=== PATIENT | male | born 1955 | race Caucasian/White ===

== ENCOUNTER 2020-12-08 14:51 | Inpatient (IN) | payer MEDICARE ==
[2020-12-08] MEDS ORDERED: NITROGLYCERIN SL TABS 0.4 MG TAB SUBLINGUAL STA (15:03)
[2020-12-08] MEDS ORDERED: NITROGLYCERIN OINT 1 INCH/GM PACKET TOPICAL STA (15:03)
[2020-12-08] MEDS ORDERED: ASPIRIN 81 MG PO STA (15:03)
[2020-12-08] MEDS ORDERED: ATORVASTATIN 80 MG TAB PO STA (15:09)
[2020-12-08] MEDS ORDERED: HEPARIN SODIUM,PORCINE 5,000 UNIT/ML 1 ML VIAL IV STA (15:14)
[2020-12-08] MEDS ORDERED: HEPARIN SODIUM 1,000 UN/ML (10ML VL) IV STA (15:14)
[2020-12-08] MEDS ORDERED: NALOXONE 0.4 MG/ML 1 ML VIAL IV PRN (15:16)
[2020-12-08 15:19] LABS: Basophils # (A) 0.1 k/uL (0-0.2); Basophils % (A) 1 %; Eosinophils # (A) 0.3 k/uL (0-0.7); Eosinophils % (A) 2 %; HCT 46.6 % (39.0-53.0); HGB 15.5 gm/dL (13.0-17.5); Lymphocytes # (A) 2.5 k/uL (1.0-4.8); Lymphocytes % (A) 22 %; MCH 31.8 pg (25.0-35.0); MCHC 33.3 g/dL (31.0-37.0); MCV 95.5 fL (80.0-100.0); Mean Platelet Volume 9.3; Monocytes # (A) 0.8 k/uL (0-1.0); Monocytes % (A) 7 %; Neutrophils # (A) 7.3 k/uL (1.3-7.7); Neutrophils % (A) 65 %; Platelet Count 195 k/uL (150-450); RBC 4.88 m/uL (4.30-5.90); RDW 13.2 % (11.5-15.5); WBC 11.1 k/uL (3.8-10.6)
[2020-12-08 15:29] LABS: Partial Thromboplastin Time 27.1 sec (22.0-30.0); Prothrombin Time 10.6 sec (9.0-12.0)
[2020-12-08] MEDS ORDERED: LIDOCAINE 1% INJ 10MG/ML (20 ML MDV) SQ ONE (15:30)
[2020-12-08] MEDS ORDERED: fentaNYL (PF) 50 MCG/ML 2 ML AMP ONE (15:31)
[2020-12-08] MEDS ORDERED: IV FLUID CONTINUATION 900 ML IV ONE (15:33)
[2020-12-08] MEDS ORDERED: fentaNYL (PF) 50 MCG/ML 2 ML AMP IV ONE ×2 (15:33→15:56)
[2020-12-08] MEDS: MIDAZOLAM 2 MG/2 ML VIAL IV ONE ×2 (15:33→15:48)
--- NOTE | 2020-12-08 15:33 | XR ---
EXAMINATION TYPE: XR chest 1V DATE OF EXAM: 12/08/2020 COMPARISON: None INDICATION: Chest pain TECHNIQUE: Single frontal view of the chest is obtained. FINDINGS: The heart size is normal. The pulmonary vasculature is somewhat prominent. Mild increased lung markings may be at the lung bases. Correlate for subsegmental atelectasis. Early atypical pulmonary edema could be considered. Patchy subsegmental infiltrate such as from atypical pn eumonia is considered less likely basis of this examination. Clinical correlation would be recommende d. IMPRESSION: 1. Mild by basilar infiltrates. Atelectasis or atypical pulmonary edema are favored. Follow-up can be performed as clinically indicated.
--- NOTE | 2020-12-08 15:35 | ED ---
General Adult HPI - General Chief complaint: Chest Pain Stated complaint: Chest pain Source: patient, EMS, RN notes reviewed, old records reviewed Limitations: no limitations - History of Present Illness Initial comments: 65-year-old male presenting with sudden onset chest pain radiating to the arm and her neck. This is a pressure heavy sensation. History of coronary artery bypass graft in the remote past. Patient follows with cardiology out of [facility]. He reports associated nausea and diaphoresis. Patient had been given nitroglycerin and aspirin by EMS. - Related Data Allergies Allergy/AdvReac Type Severity Reaction Status Date / Time No Known Allergies Allergy Verified 12/08/20 15:07 Review of Systems ROS Statement: Those systems with pertinent positive or pertinent negative responses have been documented in the HPI. ROS Other: All systems not noted in ROS Statement are negative. Past Medical History Past Medical History: Hypertension, Renal Disease History of Any Multi-Drug Resistant Organisms: None Reported Additional Past Surgical History / Comment(s): Right kideny removal Past Psychological History: No Psychological Hx Reported Smoking Status: Current every day smoker Past Alcohol Use History: None Reported Past Drug Use History: None Reported General Exam Limitations: no limitations General appearance: alert, in distress Head exam: Present: atraumatic, normocephalic Eye exam: Present: normal appearance, PERRL ENT exam: Present: normal exam Neck exam: Present: normal inspection. Absent: tenderness, meningismus Respiratory exam: Present: normal lung sounds bilaterally. Absent: respiratory distress, wheezes, rales Cardiovascular Exam: Present: normal rhythm, tachycardia GI/Abdominal exam: Present: soft. Absent: distended, tenderness, guarding Extremities exam: Present: normal inspection, normal capillary refill. Absent: pedal edema Neurological exam: Present: alert, oriented X3, CN II-XII intact Psychiatric exam: Present: anxious Skin exam: Present: warm, diaphoretic. Absent: cyanosis Course Vital Signs 12/08/20 14:53 Temperature 98.7 F Pulse Rate 113 H Respiratory 18 Rate Blood Pressure 145/99 O2 Sat by Pulse 98 Oximetry EKG Findings - EKG Comments: EKG Findings:: EKG obtained at 1459, wide-complex regular tachycardia with diffuse ST segment depression and elevation in aVR. There is no clear atrial activity, this may be an accelerated junctional rhythm. Rate of 112. QRS duration 136, QTC 491. EKG obtained at 1507, accelerated junctional rhythm this is a posterior with ST segment elevation in aVR, rate of 109, QRS duration 104, QTC 436 Medical Decision Making - Medical Decision Making 65-year-old male presenting for evaluation of chest pain. Patient is in extremis, EKG is ischemic. Workup initiated, patient given heparin, Lipitor, aspirin and nitroglycerin. He's taken immediately to the [facility] as a STEMI activation. Cardiology has been contacted, the admitting physician Dr. Christina has been contacted. - Lab Data Result diagrams: 12/08/20 15:15 Lab Results 12/08/20 Range/Units 15:15 WBC 11.1 H (3.8-10.6) k/uL RBC 4.88 (4.30-5.90) m/uL Hgb 15.5 (13.0-17.5) gm/dL Hct 46.6 (39.0-53.0) % MCV 95.5 (80.0-100.0) fL MCH 31.8 (25.0-35.0) pg MCHC 33.3 (31.0-37.0) g/dL RDW 13.2 (11.5-15.5) % Plt Count 195 (150-450) k/uL MPV 9.3 Neutrophils % 65 % Lymphocytes % 22 % Monocytes % 7 % Eosinophils % 2 % Basophils % 1 % Neutrophils # 7.3 (1.3-7.7) k/uL Lymphocytes # 2.5 (1.0-4.8) k/uL Monocytes # 0.8 (0-1.0) k/uL Eosinophils # 0.3 (0-0.7) k/uL Basophils # 0.1 (0-0.2) k/uL Disposition Clinical Impression: ST elevation myocardial infarction (STEMI) Disposition: ADMITTED IP TO THIS HOSP Condition: Serious Is patient prescribed a controlled substance at d/c from ED?: No Referrals: Gemini Hernandez MD [Primary Care Provider] - 1-2 days Time of Disposition: 15:15
[2020-12-08] MEDS ORDERED: BIVALIRUDIN BOLUS 250 MG/50 ML IV ONE (15:40)
[2020-12-08 15:41] LABS: Albumin 4.6 g/dL (3.5-5.0); Calcium 10.1 mg/dL (8.4-10.2); Magnesium 2.3 mg/dL (1.6-2.3); Potassium 4.5 mmol/L (3.5-5.1); Total Bilirubin 0.5 mg/dL (0.2-1.3); Total Protein 7.7 g/dL (6.3-8.2)
[2020-12-08] MEDS ORDERED: niCARdipine 25 MG/10 ML VIAL ONE (15:43)
[2020-12-08] MEDS ORDERED: BIVALIRUDIN 250 MG in SODIUM CHLORIDE 0.9% 36 ML IV ONE (15:47)
[2020-12-08] MEDS ORDERED: TICAGRELOR 90 MG TAB ONE (15:53)
[2020-12-08] MEDS ORDERED: TICAGRELOR 90 MG TAB PO ONE (15:55)
[2020-12-08] MEDS ORDERED: IOPAMIDOL-370 125ML BTL INJ ONE (15:57)
[2020-12-08] MEDS ORDERED: SODIUM CHLORIDE 0.9% 1,000 ML IV SCH (16:15)
--- NOTE | 2020-12-08 20:55 | CC ---
CARDIAC CATHETERIZATION REPORT DATE OF SERVICE: 12/08/2020 PERFORMING PHYSICIAN: Thai Ramirez M.D. PROCEDURES PERFORMED: 1. Selective left and right coronary angiogram. 2. GAMBLE to LAD angiogram. 3. SVG to first and second diagonal angiogram. 4. SVG to left circumflex angiogram. 5. Left heart catheterization. 6. Successful stenting of SVG to first and second diagonals using a 3.0 x 18 mm Xience drug-eluting stent with an excellent angiographic result and reduction of stenosis from 100% to 0%. INDICATION: This is a 65-year-old gentleman with coronary artery disease and prior coronary artery bypass grafting in 2007, where he received GAMBLE to LAD and SVG to first and second diagonal branches as well as SVG to left circumflex. He presented to the hospital here at [facility] Emergency Department with chest discomfort. His EKG was concerning for diffuse ischemia, and because of the ongoing chest discomfort a heart catheterization was advised. Please note that the patient also does have hypertension and dyslipidemia and also he does have history of right nephrectomy and chronic kidney disease, stage 3. APPROACH: Right common femoral artery. COMPLICATIONS: None. LEVEL OF SEDATION: Moderate, with sedation length of 28 minutes. PROCEDURE DESCRIPTION: After obtaining informed consent, the patient was brought to the cardiac laboratory geneticist. The right common femoral artery was cannulated using micropuncture technique. The micropuncture wire passed easily. Then I placed a 6-Sinhala sheath at the right common femoral artery. Selective left and right coronary angiogram was performed with JL4 and JR4 catheters. GAMBLE to LAD angiogram and SVG to first and second diagonals as well as SVG to left circumflex angiogram were performed using the JR4 catheter. Left heart catheterization was performed using a 6-Sinhala pigtail catheter. After that I did intervene on the SVG to first and second diagonals. Please see separate report for that. SELECTIVE CORONARY ANGIOGRAM: 1. Left main appeared to have mild disease only and bifurcates into left circumflex and left anterior descending artery. 2. The left circumflex is a large-caliber vessel. The proximal circumflex appeared to have mild disease only. The mid circumflex appeared to have a lesion in the range of 60% to 70%. The left circumflex distally becomes a small-caliber vessel. 3. The LAD is 100% occluded by the proximal portion. 4. The RCA appeared to be a small- to medium-caliber vessel and nondominant vessel. PERCUTANEOUS CORONARY INTERVENTION OF THE SAPHENOUS VEIN GRAFT TO FIRST AND SECOND DIAGONALS: Anticoagulation was achieved using Angiomax. I did engage the SVG to first and second diagonals using a JR4 guide. I did wire it using a run-through wire. After that I did balloon angioplasty using a 2.5 x 12 mm balloon before I deployed a 3.0 x 18 mm Xience drug-eluting stent where the stent was positioned under fluoroscopic guidance and deployed under about 16 atmospheres for 20 seconds. The following angiogram showed good angiographic results and the procedure was completed without any complication. HEMODYNAMICS: The LVEDP was about 12 mmHg without significant gradient across the aortic valve. CONCLUSION: 1. Occluded left anterior descending artery. The GAMBLE to LAD is patent and the LAD distal to the anastomosis has a lesion that appeared to be in the range of 50% to 60%. 2. Acutely occluded SVG to first and second diagonals. I performed successful stenting of that SVG. 3. Chronically occluded SVG to left circumflex. The left circumflex in the mid to distal portion has a lesion that appeared to be in the range of 60% to 70%. 4. Normal LVEDP. POST-PROCEDURE MANAGEMENT: 1. Aggressive cholesterol control. 2. Risk factor modifications. 3. Follow up with the patient. MMODL / IJN: [id number] /
[2020-12-08] MEDS: FAMOTIDINE 20 MG TAB PO SCH (21:27)
[2020-12-08] MEDS: METOPROLOL TARTRATE 12.5 MG TAB PO SCH (21:27)
[2020-12-08] MEDS: ATORVASTATIN 40 MG TAB PO SCH (21:27)
--- NOTE | 2020-12-08 21:51 | US ---
EXAMINATION TYPE: US kidneys/renal and bladder DATE OF EXAM: 12/08/2020 COMPARISON: NONE CLINICAL HISTORY: renal failure. renal failure, pt states having rt kidney surgically removed due to renal CA EXAM MEASUREMENTS: Left Kidney: 12.2 x 7.2 x 5.1 cm Right Kidney: Surgically absent Left Kidney: Multicystic, largest cyst= 2.2 x 1.9 cm/ No evidence of hydro Bladder: WNL Bilateral Jets seen: No IMPRESSION: 1. Renal cysts.
[2020-12-09] MEDS: METOPROLOL TARTRATE 12.5 MG TAB PO SCH ×3 (01:01→19:41)
[2020-12-09] MEDS: FAMOTIDINE 20 MG TAB PO SCH ×2 (08:35→19:39)
[2020-12-09] MEDS: TICAGRELOR 90 MG TAB PO SCH ×2 (08:35→19:40)
[2020-12-09] MEDS: allopurinoL 100 MG TAB PO SCH (08:35)
[2020-12-09] MEDS: ASPIRIN 81 MG PO SCH (08:35)
[2020-12-09 10:16] LABS: Calcium 9.1 mg/dL (8.4-10.2); Potassium 4.2 mmol/L (3.5-5.1)
[2020-12-09 11:33] LABS: Basophils % (A) 0 %; Eosinophils # (A) 0.1 k/uL (0-0.7); Eosinophils % (A) 1 %; HCT 45.2 % (39.0-53.0); HGB 14.7 gm/dL (13.0-17.5); Lymphocytes # (A) 1.4 k/uL (1.0-4.8); Lymphocytes % (A) 14 %; MCH 31.5 pg (25.0-35.0); MCHC 32.6 g/dL (31.0-37.0); MCV 96.6 fL (80.0-100.0); Mean Platelet Volume 10.7; Monocytes # (A) 0.5 k/uL (0-1.0); Monocytes % (A) 5 %; Neutrophils # (A) 7.9 k/uL (1.3-7.7); Neutrophils % (A) 78 %; Platelet Count 172 k/uL (150-450); RBC 4.68 m/uL (4.30-5.90); RDW 13.9 % (11.5-15.5); WBC 10.1 k/uL (3.8-10.6)
--- NOTE | 2020-12-09 12:06 | P.HPIM ---
History of Present Illness H&P Date: 12/09/20 Chief Complaint: CP HISTORY OF PRESENT ILLNESS This is a 65-year-old male patient of Dr. Hernandez and block sorter Dr. Danielle with past medical history of coronary artery disease with previous CABG in 2007 with GAMBLE to LAD, SVG to first and second diagonal branches as well as SVG to the left circumflex, hypertension, hyperlipidemia, history of kidney cancer status post right nephrectomy, chronic kidney disease stage III, gastroesophageal reflux disease, chronic gout, active tobacco use. States he had chest pain for about one hour took an aspirin at home as well as one nitroglycerin and then contacted EMS. He states he was resting at the time of onset. He was given 2 nitro with EMS transport and he was still low better by the time he arrived to the hospital. EKG was concerning for diffuse ischemia and patient underwent an urgent heart catheterization at which time he was found to have left main with mild disease only and bifurcates into the left circumflex and left anterior descending artery. Left circumflex is a large caliber vessel. Proximal circumflex mild disease only. Mid circumflex appeared to have lesion in the range of 60-70%. Left circumflex distally be comes a small caliber vessel. LAD is out of percent occluded by the proximal portion. RCA appears to be small to medium caliber and nondominant. He underwent successful stenting of the SVG to the first and second diagonals. Patient has been started on Brilinta, Lipitor, aspirin and Lopressor. Patient at time of evaluation denies having any chest pain, shortness of breath, palpitations, lightheadedness or dizziness. A renal ultrasound revealed renal cysts. Echocardiogram has been obtained and report is pending. REVIEW OF SYSTEMS Constitutional: No fever, no chills, no night sweats. No weight change. No weakness, fatigue or lethargy. No daytime sleepiness. EENT: No headache. No blurred vision or double vision, no loss of vision. No loss of Hearing, no ringing in the ears, no dizziness. No nasal drainage or congestion. No epistaxis. No sore throat. Lungs: No shortness of breath, cough, no sputum production. No wheezing. Cardiovascular: No chest pain, no lower extremity edema. No palpitations. No paroxysmal nocturnal dyspnea. No orthopnea. No lightheadedness or dizziness. No syncopal episodes. Abdominal: No abdominal pain. No nausea, vomiting. No diarrhea. No constipation. No bloody or tarry stools.. No loss of appetite. Genitourinary: No dysuria, increased frequency, urgency. No urinary retention. Musculoskeletal: No myalgias. No muscle weakness, no gait dysfunction, no frequent falls. No back pain. No neck pain. Integumentary: No wounds, no lesions. No rash or pruritus. No unusual brui sing. No change in hair or nails. Neurologic: No aphasia. No facial droop. No change in mentation. No head injury. No headache. No paralysis. No paresthesia. Psychiatric: No depression. No anxiety. Endocrine: No abnormal blood sugars. No weight change. SOCIAL HISTORY Patient is a smoker of one pack per day for 49 years. He denies any alcohol use for 30 years. He retired last January. He denies having walker or cane. No CPAP oxygen or nebulizer at home. FAMILY HISTORY Mother at age 87 from cervical cancer. Father from electrical accident. Patient has a total of 5 brothers with history of prostate cancer diabetes and coronary artery disease. Patient has one sister alive with no major. Patient has one sister that passed from unknown cause. Patient is a total of 5 brothers with history of prostate cancer diabetes and coronary artery disease. Patient has 2 daughters and one has chronic neck problems. One son with no major medical problems.. PHYSICAL EXAMINATION Gen: This is a 65-year-old male. He is resting in bed appears to be comfortable and in no acute distress. HEENT: Head is atraumatic, normocephalic. Pupils equal, round. Sclerae is anicteric. NECK: Supple. No JVD. No lymphadenopathy. No thyromegaly. LUNGS: Clear to auscultation. No wheezes or rhonchi. No intercostal retractions. HEART: Regular rate and rhythm. No murmur. ABDOMEN: Soft. Bowel sounds are present. No masses. No tenderness. EXTREMITIES: No pedal edema. No calf tenderness. NEUROLOGICAL: Patient is awake, alert and oriented x3. Cranial nerves 2 through 12 are grossly intact. ASSESSMENT AND PLAN 1. Acute ST elevated myocardial infarction status post stenting of the SVG in the first and second diagonals. Patient has been started on Brilinta, Lipitor, aspirin, Lopressor. Echocardiogram report is pending. 2. History of coronary artery disease with previous CABG in 2007 with AGMBLE to LAD, SVG to first and second diagonal branches as well as SVG to the left cir cumflex. Continue as in #1. 3. Hypertension. Continue Lopressor 12.5 mg twice daily. 4. Hyperlipidemia. Continue Lipitor. 5. History of kidney cancer status post right nephrectomy, stable. 6. Chronic kidney disease stage III. 7. Tobacco use and dependence. Patient declined nicotine patch. 8. Chronic gout. Continue allopurinol 100 mg daily. 9. Gastroesophageal reflux disease. Continue Pepcid 20 mg twice daily. Patient will be admitted to the hospital for a minimum of 2 night stay. DISCHARGE PLAN Home. Impression and plan of care have been directed as dictated by the signing physician. Roro Heck nurse practitioner acting as scribe for signing physician. Past Medical History Past Medical History: Hypertension, Renal Disease History of Any Multi-Drug Resistant Organisms: None Reported Past Surgical History: Coronary Bypass/CABG, Heart Catheterization Additional Past Surgical History / Comment(s): Right kideny removal 2018. CAGB 2007 Past Anesthesia/Blood Transfusion Reactions: No Reported Reaction Past Psychological History: No Psychological Hx Reported Smoking Status: Current every day smoker Past Alcohol Use History: None Reported Past Drug Use History: None Reported Medications and Allergies Home Medications Medication Instructions Recorded Confirmed Type Aspirin EC [Ecotrin] 325 mg PO DAILY 12/08/20 12/08/20 History Atorvastatin Calcium [Lipitor] 20 mg PO DAILY 12/08/20 12/08/20 History Ergocalciferol (Vitamin D2) 1,250 mcg PO Q30D 12/08/20 12/08/20 History [Drisdol (50,000 Iu)] Famotidine [Pepcid] 20 mg PO BID 12/08/20 12/08/20 History Metoprolol Succinate [Toprol XL] 25 mg PO DAILY 12/08/20 12/08/20 History Nitroglycerin Sl Tabs [Nitrostat] 0.4 mg SUBLINGUAL Q5M PRN 12/08/20 12/08/20 History allopurinoL [Zyloprim] 100 mg PO DAILY 12/08/20 12/08/20 History Allergies Allergy/AdvReac Type Severity Reaction Status Date / Time No Known Allergies Allergy Verified 12/08/20 15:59 Physical Exam Vitals: Vital Signs Temp Pulse Pulse Resp BP BP Pulse Ox 12/09/20 08:00 97.6 F 60 18 115/75 97 12/09/20 03:04 64 17 118/73 99 12/09/20 01:57 56 L 17 12/09/20 00:00 98.2 F 56 L 17 114/73 99 12/08/20 21:45 62 18 117/74 97 12/08/20 21:21 61 17 119/66 98 12/08/20 20:38 67 17 128/72 97 12/08/20 20:23 17 137/85 97 12/08/20 20:08 62 19 127/79 98 12/08/20 20:00 98.2 F 62 18 131/74 98 12/08/20 18:31 61 18 144/84 99 12/08/20 17:57 58 L 18 142/86 99 12/08/20 17:27 58 L 18 131/81 99 12/08/20 17:12 60 18 125/79 99 12/08/20 16:57 60 18 125/73 99 12/08/20 16:42 62 18 124/69 98 12/08/20 16:27 63 18 134/71 98 12/08/20 16:01 98.2 F 60 16 131/74 98 12/08/20 14:53 98.7 F 113 H 18 145/99 98 Intake and Output 12/08/20 12/09/20 12/09/20 22:59 06:59 14:59 Intake Total 511 200 240 Output Total 500 1200 Balance 11 -1000 240 Intake: IV 511 Oral 200 240 Output: Urine 500 1200 Other: Voiding Method Urinal Urinal Urinal # Voids 1 1 Weight 95.254 kg 90 kg Results CBC & Chem 7: 12/09/20 08:56 12/09/20 08:56 Labs: Abnormal Lab Results - Last 24 Hours (Table) 12/08/20 12/08/20 12/08/20 Range/Units 15:15 15:15 15:15 WBC 11.1 H (3.8-10.6) k/uL BUN 29 H (9-20) mg/dL Creatinine 2.42 H (0.66-1.25) mg/dL Glucose 120 H (74-99) mg/dL Troponin I 0.079 H* (0.000-0.034) ng/mL Thrombosis Risk Factor Assmnt - Choose All That Apply Any of the Below Risk Factors Present?: Yes Each Factor Represents 1 point: Obesity (BMI >25) Each Risk Factor Represents 2 Points: Age 61-74 years Thrombosis Risk Factor Assessment Total Risk Factor Score: 3 Thrombosis Risk Factor Assessment Level: Moderate Risk
--- NOTE | 2020-12-09 12:22 | P.PN ---
Subjective Progress Note Date: 12/09/20 This is a 65-year-old gentleman past medical history consistent for CABG, hypertension, hyperlipidemia, kidney cancer status post right nephrectomy, chronic kidney disease, chronic gout, active nicotine dependence who presented to the hospital with a non-ST elevation myocardial infarction. He was taken to the cardiac catheterization lab where he underwent angioplasty and stenting of the first and second diagonal by Dr. Vee. The patient was seen and examined this morning denied any chest discomfort and is breathing overall has been stable. Patient also had some disease in the circumflex and will be treated medically. Blood pressure 115/70 with a heart rate in the 60s 97% on room air. White blood cell count 10.1, hemolytic 14.7, platelet count 172. Sodium 138, potassium 4.2, BUN 25, creatinine 2.1. Objective - Vital Signs Vital signs: Vital Signs Temp 97.6 F 12/09/20 08:00 Pulse 60 12/09/20 08:00 Resp 18 12/09/20 08:00 BP 115/75 12/09/20 08:00 Pulse Ox 97 12/09/20 08:00 Intake & Output 12/08/20 12/09/20 12/09/20 18:59 06:59 18:59 Intake Total 511 200 240 Output Total 1700 Balance 511 -1500 240 Weight 95.254 kg 90 kg Intake: IV 511 Oral 200 240 Output: Urine 1700 Other: Voiding Method Urinal Urinal # Voids 1 - Exam Gen: This is a 65-year-old male. He is resting in bed appears to be comfortable and in no acute distress. HEENT: Head is atraumatic, normocephalic. Pupils equal, round. Sclerae is anicteric. NECK: Supple. No JVD. No lymphadenopathy. No thyromegaly. LUNGS: Clear to auscultation. No wheezes or rhonchi. No intercostal retractions. HEART: Regular rate and rhythm. No murmur. ABDOMEN: Soft. Bowel sounds are present. No masses. No tenderness. EXTREMITIES: No pedal edema. No calf tenderness. Right groin soft, no evidence of any hematoma. NEUROLOGICAL: Patient is awake, alert and oriented x3. Cranial nerves 2 through 12 are grossly intact. - Labs CBC & Chem 7: 12/09/20 08:56 12/09/20 08:56 Labs: Abnormal Lab Results - Last 24 Hours (Table) 12/08/20 12/08/20 12/08/20 Range/Units 15:15 15:15 15:15 WBC 11.1 H (3.8-10.6) k/uL Neutrophils # (1.3-7.7) k/uL BUN 29 H (9-20) mg/dL Creatinine 2.42 H (0.66-1.25) mg/dL Glucose 120 H (74-99) mg/dL Troponin I 0.079 H* (0.000-0.034) ng/mL 12/09/20 12/09/20 Range/Units 08:56 08:56 WBC (3.8-10.6) k/uL Neutrophils # 7.9 H (1.3-7.7) k/uL BUN 25 H (9-20) mg/dL Creatinine 2.17 H (0.66-1.25) mg/dL Glucose 175 H (74-99) mg/dL Troponin I (0.000-0.034) ng/mL Assessment and Plan Plan: Assessment and plan #1 acute non-ST elevation myocardial infarction, status post angioplasty and stenting of the first and second diagonal branch #2 hypertension #3 known history of coronary artery disease with prior bypass surgery #4 hyperlipidemia #5 chronic kidney disease #6 nicotine dependence #7 GERD Plan We will continue dual antiplatelet therapy. Increase Lipitor to 80 mg daily. Need to observe the patient for 24 hours. Check lytes BUN and creatinine in the morning. DNP note has been reviewed, I agree with a documented findings and plan of care. Patient was seen and examined.
--- NOTE | 2020-12-09 12:40 | ECHOF ---
Referral Reason:ACS MEASUREMENTS -------- HEIGHT: 182.9 cm WEIGHT: 89.8 kg BP: 118/73 RVIDd: 3.5 cm (< 3.3) IVSd: 1.0 cm (0.6 - 1.1) LVIDd: 4.8 cm (3.9 - 5.3) LVPWd: 1.0 cm (0.6 - 1.1) IVSs: 1.5 cm LVIDs: 3.9 cm LVPWs: 1.4 cm LA Diam: 3.3 cm (2.7 - 3.8) LAESV Index (A-L): 25.89 ml/m Ao Diam: 3.5 cm (2.0 - 3.7) AV Cusp: 2.1 cm (1.5 - 2.6) MV EXCURSION: 10.933 mm (> 18.000) MV EF SLOPE: 31 mm/s (70 - 150) EPSS: 2.6 cm MV E Swapnil: 1.06 m/s MV DecT: 189 ms MV A Swapnil: 0.75 m/s MV E/A Ratio: 1.42 AR PHT: 559 ms FINDINGS -------- Sinus rhythm. This was a technically good study. The left ventricular size is normal. Left ventricular wall thickness is normal. Overall left vent ricular systolic function is mild-moderately impaired with, an EF between 40 - 45 %. The right ventricle is mildly enlarged. Normal LA size by volume 22+/-6 ml/m2. The right atrium is normal in size. Aortic valve is trileaflet and is mildly thickened. There is moderate aortic regurgitation. Mild mitral annular calcification present. The tricuspid valve appears structurally normal. Unable to estimate RVSP due to inadequate TR jet s pectral doppler profile. Trace/mild (physiologic) pulmonic regurgitation. The aortic root size is normal. IVC Not well visulized. There is no pericardial effusion. CONCLUSIONS -------- 1. The left ventricular size is normal. 2. Left ventricular wall thickness is normal. 3. Overall left ventricular systolic function is mild-moderately impaired with, an EF between 40 - 45 %. 4. The right ventricle is mildly enlarged. 5. Normal LA size by volume 22+/-6 ml/m2. 6. Aortic valve is trileaflet and is mildly thickened. 7. There is moderate aortic regurgitation. 8. Mild mitral annular calcification present. 9. Trace/mild (physiologic) pulmonic regurgitation. 10. There is no pericardial effusion. PENSION AGENT: Araseli Bridges RDCS
[2020-12-09] MEDS: ATORVASTATIN 40 MG TAB PO SCH (19:40)
[2020-12-10 03:01] LABS: Cholesterol 147 mg/dL (<200); HDL Cholesterol 33 mg/dL (40-60); LDL Cholesterol,Calculated 76 mg/dL (0-99); Triglycerides 192 mg/dL (<150)
[2020-12-10 07:58] VITALS: RESP 18
[2020-12-10] MEDS: allopurinoL 100 MG TAB PO SCH (08:01)
[2020-12-10] MEDS: ASPIRIN 81 MG PO SCH (08:01)
[2020-12-10] MEDS: FAMOTIDINE 20 MG TAB PO SCH (08:01)
[2020-12-10] MEDS: TICAGRELOR 90 MG TAB PO SCH (08:01)
[2020-12-10] MEDS: METOPROLOL TARTRATE 12.5 MG TAB PO SCH (08:01)
[2020-12-10 08:58] LABS: Basophils # (A) 0.1 k/uL (0-0.2); Basophils % (A) 1 %; Eosinophils # (A) 0.2 k/uL (0-0.7); Eosinophils % (A) 2 %; HCT 44.1 % (39.0-53.0); HGB 15.4 gm/dL (13.0-17.5); Lymphocytes # (A) 1.3 k/uL (1.0-4.8); Lymphocytes % (A) 14 %; MCH 33.1 pg (25.0-35.0); MCV 94.7 fL (80.0-100.0); Mean Platelet Volume 9.6; Monocytes # (A) 0.6 k/uL (0-1.0); Monocytes % (A) 6 %; Neutrophils # (A) 7.1 k/uL (1.3-7.7); Neutrophils % (A) 76 %; Platelet Count 162 k/uL (150-450); RBC 4.66 m/uL (4.30-5.90); RDW 13.1 % (11.5-15.5); WBC 9.3 k/uL (3.8-10.6)
[2020-12-10 09:06] LABS: Calcium 9.2 mg/dL (8.4-10.2); Potassium 4.3 mmol/L (3.5-5.1)
--- NOTE | 2020-12-10 10:05 | P.NPCON ---
History of Present Illness - Reason for Consult chronic renal failure - History of Present Illness Reason for consultation: Chronic kidney disease stage IIIB History of present illness: I sent patient is a 65-year-old male seen in renal consultation for chronic kidney disease. Patient has chronic kidney disease stage IIIB secondary to solitary left kidney and nephrosclerosis. Patient's creatinine in March 2020 was 2.2. Patient has history of right nephrectomy done in July 2018. Patient presented to the hospital with chest pain with radiation to his arm and neck. He does have history of CABG. Echocardiogram revealed ejection fraction of 40-45% with moderate aortic regurgitation. He underwent cardiac catheterization on December 08 with a stent placement of the SVG. Admits to good urine output. No hematuria. No active chest pain or shortness of breath. Blood pressure stable. No vomiting or diarrhea. Denies use of nonsteroidals. No edema. Vital signs are stable. General: The patient appeared well nourished and normally developed. HEENT: Head exam is unremarkable. Neck is without jugular venous distension. LUNGS: Breath sounds decreased. HEART: Rate and Rhythm are regular. ABDOMEN: Soft, nontender. EXTREMITITES: No edema. Past Medical History Past Medical History: Hypertension, Renal Disease History of Any Multi-Drug Resistant Organisms: None Reported Past Surgical History: Coronary Bypass/CABG, Heart Catheterization Additional Past Surgical History / Comment(s): Right kideny removal 2018. CAGB 2007 Past Anesthesia/Blood Transfusion Reactions: No Reported Reaction Past Psychological History: No Psychological Hx Reported Smoking Status: Current every day smoker Past Alcohol Use History: None Reported Past Drug Use History: None Reported Medications and Allergies Home Medications Medication Instructions Recorded Confirmed Type Ergocalciferol (Vitamin D2) 1,250 mcg PO Q30D 12/08/20 12/08/20 History [Drisdol (50,000 Iu)] Famotidine [Pepcid] 20 mg PO BID 12/08/20 12/08/20 History Metoprolol Succinate [Toprol XL] 25 mg PO DAILY 12/08/20 12/08/20 History Nitroglycerin Sl Tabs [Nitrostat] 0.4 mg SUBLINGUAL Q5M PRN 12/08/20 12/08/20 History allopurinoL [Zyloprim] 100 mg PO DAILY 12/08/20 12/08/20 History Aspirin 81 mg PO DAILY chew 12/09/20 Rx Atorvastatin [Lipitor] 40 mg PO HS #30 tab 12/09/20 Rx Ticagrelor [Brilinta] 90 mg PO BID #60 tab 12/09/20 Rx Allergies Allergy/AdvReac Type Severity Reaction Status Date / Time No Known Allergies Allergy Verified 12/08/20 15:59 Physical Exam Vitals: Vital Signs Temp Pulse Resp BP BP Pulse Ox 12/10/20 07:57 97.9 F 64 18 145/85 97 12/10/20 04:00 86 17 109/77 98 12/10/20 01:57 66 17 12/10/20 00:00 97.8 F 66 17 124/76 97 12/09/20 19:45 60 19 12/09/20 19:43 97.4 F L 60 19 119/69 96 12/09/20 16:00 74 18 124/77 96 12/09/20 12:00 97.4 F L 54 L 18 121/75 96 Intake and Output 12/09/20 12/10/20 12/10/20 22:59 06:59 14:59 Intake Total 125 100 Balance 125 100 Intake: Oral 125 100 Other: Voiding Method Toilet Toilet Urinal Urinal # Voids 2 Weight 89.5 kg Results - Lab Results Most recent lab results Calcium 9.2 mg/dL (8.4-10.2) 12/10/20 08:17 Magnesium 2.3 mg/dL (1.6-2.3) 12/08/20 15:15 12/10/20 08:17 12/10/20 08:17 Assessment and Plan Plan: Assessment: 1. Chronic kidney disease stage IIIB secondary to solitary left kidney and nephrosclerosis. Baseline creatinine 2-2.2. 2. Status post right nephrectomy in July 2018. 3. Coronary artery disease status post cardiac catheterization on December 08 with stent placed to the SVG. Plan: Anticipate discharge soon. Repeat BMP 2-3 days postdischarge as he received IV contrast on December 08. Follow-up outpatient in 1-2 weeks. Thank you for the consultation. I will continue to follow the patient with you during his hospital stay.
--- NOTE | 2020-12-10 11:01 | P.PN ---
Subjective Progress Note Date: 12/10/20 This is a 65-year-old gentleman past medical history consistent for CABG, hypertension, hyperlipidemia, kidney cancer status post right nephrectomy, chronic kidney disease, chronic gout, active nicotine dependence who presented to the hospital with a non-ST elevation myocardial infarction. He was taken to the cardiac catheterization lab where he underwent angioplasty and stenting of the first and second diagonal by Dr. Vee. The patient was seen and examined this morning denied any chest discomfort and is breathing overall has been stable. Patient also had some disease in the circumflex and will be treated medically. Blood pressure 115/70 with a heart rate in the 60s 97% on room air. White blood cell count 10.1, hemolytic 14.7, platelet count 172. Sodium 138, potassium 4.2, BUN 25, creatinine 2.1. 12/10/2020 Patient seen and examined this morning, denies any chest discomfort or difficulty in breathing. Blood pressure 144/80 with a heart rate in the 60s, 97% on room air. White blood cell count 9.3, hemoglobin 15.4, platelet count 162. Sodium 137, potassium 4.3, BUN 25, creatinine 2.1. Objective - Vital Signs Vital signs: Vital Signs Temp 97.9 F 12/10/20 07:57 Pulse 64 12/10/20 07:57 Resp 18 12/10/20 07:57 BP 145/85 12/10/20 07:57 Pulse Ox 97 12/10/20 07:57 Intake & Output 12/09/20 12/10/20 12/10/20 18:59 06:59 18:59 Intake Total 605 100 240 Balance 605 100 240 Weight 89.5 kg Intake: Oral 605 100 240 Other: Voiding Method Urinal Toilet Urinal # Voids 3 2 - Exam Gen: This is a 65-year-old male. He is resting in bed appears to be comfortable and in no acute distress. HEENT: Head is atraumatic, normocephalic. Pupils equal, round. Sclerae is anicteric. NECK: Supple. No JVD. No lymphadenopathy. No thyromegaly. LUNGS: Clear to auscultation. No wheezes or rhonchi. No intercostal retractions. HEART: Regular rate and rhythm. No murmur. ABDOMEN: Soft. Bowel sounds are present. No masses. No tenderness. EXTREMITIES: No pedal edema. No calf tenderness. Right groin soft, no evidence of any hematoma. NEUROLOGICAL: Patient is awake, alert and oriented x3. Cranial nerves 2 through 12 are grossly intact. - Labs CBC & Chem 7: 12/10/20 08:17 12/10/20 08:17 Labs: Abnormal Lab Results - Last 24 Hours (Table) 12/09/20 12/09/20 12/10/20 Range/Units 08:56 08:56 08:17 Neutrophils # 7.9 H (1.3-7.7) k/uL BUN 25 H (9-20) mg/dL Creatinine 2.18 H (0.66-1.25) mg/dL Glucose 152 H (74-99) mg/dL Triglycerides 192 H (<150) mg/dL HDL Cholesterol 33 L (40-60) mg/dL Assessment and Plan Plan: Assessment and plan #1 acute non-ST elevation myocardial infarction, status post angioplasty and stenting of the first and second diagonal branch #2 hypertension #3 known history of coronary artery disease with prior bypass surgery #4 hyperlipidemia #5 chronic kidney disease #6 nicotine dependence #7 GERD Plan From cardiology's perspective, patient may be able to be discharged home today. We will make him a follow-up appointment in the office one week post discharge. Patient will be discharged home on aspirin 81 mg daily, Lipitor 80 mg daily, metoprolol 25 mg one tablet by mouth daily, Brilinta 90 mg twice a day and sublingual nitroglycerin as needed for chest pain. DNP note has been reviewed, I agree with a documented findings and plan of care. Patient was seen and examined.
--- NOTE | 2020-12-10 12:05 | P.DS ---
Providers Date of admission: 12/08/20 15:17 Expected date of discharge: 12/10/20 Attending physician: Samina Santana Consults: 12/08/20 15:16 Consult Physician Stat Consulting Provider: Thai Ramirez Consult Reason/Comments: STEMI Do you want consulting provider notified?: Already Contacted 12/09/20 12:45 Consult Physician Routine Consulting Provider: Arnulfo Mcwilliams Consult Reason/Comments: CKD Do you want consulting provider notified?: Yes Primary care physician: Gemini Hernandez [facility] Course: HISTORY OF PRESENT ILLNESS This is a 65-year-old male patient of Dr. Hernandez and asset coordinator Dr. Danielle with past medical history of coronary artery disease with previous CABG in 2007 with GAMBLE to LAD, SVG to first and second diagonal branches as well as SVG to the left circumflex, hypertension, hyperlipidemia, history of kidney cancer status post right nephrectomy, chronic kidney disease stage III, gastroesophageal reflux disease, chronic gout, active tobacco use. States he had chest pain for about one hour took an aspirin at home as well as one nitroglycerin and then contacted EMS. He states he was resting at the time of onset. He was given 2 nitro with EMS transport and he was still low better by the time he arrived to the hospital. EKG was concerning for diffuse ischemia and patient underwent an urgent heart catheterization at which time he was found to have left main with mild disease only and bifurcates into the left circumflex and left anterior descending artery. Left circumflex is a large caliber vessel. Proximal circumflex mild disease only. Mid circumflex appeared to have lesion in the range of 60-70%. Left circumflex distally be comes a small caliber vessel. LAD is out of percent occluded by the proximal portion. RCA appears to be small to medium caliber and nondominant. He underwent successful stenting of the SVG to the first and second diagonals. Patient has been started on Brilinta, Lipitor, aspirin and Lopressor. Patient at time of evaluation denies having any chest pain, shortness of breath, palpitations, lightheadedness or dizziness. A renal ultrasound revealed renal cysts. Echocardiogram has been obtained and report is pending. 12/10: Patient denies any chest pain or shortness of breath. He is very anxious to be discharged home today. His blood pressure 144/80, heart rate in the 60s, pulse ox 97% on room air. Echocardiogram reveals EF of 40-45%, moderate aortic regurgitation, mild mitral calcification. Repeat blood work reveals WBC 9.3, hemoglobin 15.4, platelet count 162. Sodium 137, potassium 4.3, BUN 25 and creatinine 2.1. Patient has been seen by nephrology and recommended a BMP in 2- 3 days after discharge to monitor renal function following contrast on December 08. Patient to follow up outpatient 1-2 weeks with nephrology. Patient will be discharged home today in stable condition once cleared by cardiology. ASSESSMENT AND PLAN 1. Acute ST elevated myocardial infarction status post stenting of the SVG in the first and second diagonals. 2. History of coronary artery disease with previous CABG in 2007 with GAMBLE to LAD, SVG to first and second diagonal branches as well as SVG to the left circumflex. 3. Hypertension. 4. Hyperlipidemia. 5. History of kidney cancer status post right nephrectomy, stable. 6. Chronic kidney disease stage IIIb. 7. Tobacco use and dependence. 8. Chronic gout. 9. Gastroesophageal reflux disease. DISCHARGE PLAN Home. Impression and plan of care have been directed as dictated by the signing physician. Roro Heck nurse practitioner acting as scribe for signing physician. Patient Condition at Discharge: Good Plan - Discharge Summary Discharge Rx Participant: Yes New Discharge Prescriptions: New Aspirin 81 mg PO DAILY chew Atorvastatin [Lipitor] 40 mg PO HS #30 tab Ticagrelor [Brilinta] 90 mg PO BID #60 tab Atorvastatin [Lipitor] 80 mg PO HS #30 tab Continue Famotidine [Pepcid] 20 mg PO BID Nitroglycerin Sl Tabs [Nitrostat] 0.4 mg SUBLINGUAL Q5M PRN PRN Reason: Chest Pain Metoprolol Succinate [Toprol XL] 25 mg PO DAILY Ergocalciferol (Vitamin D2) [Drisdol (50,000 Iu)] 1,250 mcg PO Q30D allopurinoL [Zyloprim] 100 mg PO DAILY Discontinued Aspirin EC [Ecotrin] 325 mg PO DAILY Atorvastatin Calcium [Lipitor] 20 mg PO DAILY Discharge Medication List Ergocalciferol (Vitamin D2) [Drisdol (50,000 Iu)] 1,250 mcg PO Q30D 12/08/20 [History] Famotidine [Pepcid] 20 mg PO BID 12/08/20 [History] Metoprolol Succinate [Toprol XL] 25 mg PO DAILY 12/08/20 [History] Nitroglycerin Sl Tabs [Nitrostat] 0.4 mg SUBLINGUAL Q5M PRN 12/08/20 [History] allopurinoL [Zyloprim] 100 mg PO DAILY 12/08/20 [History] Aspirin 81 mg PO DAILY chew 12/09/20 [Rx] Atorvastatin [Lipitor] 80 mg PO HS #30 tab 12/10/20 [Rx] Clopidogrel Bisulfate [Plavix] 300 mg PO 12/10/20 [History] Clopidogrel [Plavix] 75 mg PO DAILY 12/10/20 [History] Follow up Appointment(s)/Referral(s): Thai Ramirez MD [STAFF PHYSICIAN] - 1 Week (Dr. Ramirez's office will call you with appointment date/time) Gemini Hernandez MD [Primary Care Provider] - 1 Week (Please call office on Friday to schedule appointment.) Rui Danielle MD [REFERRING] - 1 Week (Please call office on Friday to schedule) Arnulfo Mcwilliams DO [STAFF PHYSICIAN] - 1 Week Ambulatory/Diagnostic Orders: Basic Metabolic Panel [LAB.AMB] Location: None Selected Patient Instructions/Handouts: *Surgery [facility] - After Heart Catheterization - Salt Machine Operator Instructions, Left Heart Catheterization (DC) Activity/Diet/Wound Care/Special Instructions: BMP (labwork) Friday or Friday per Dr. Mcwilliams. Discharge Disposition: HOME SELF-CARE
[2020-12-10 12:15] VITALS: BP 127/76; PULSE 59; TEMP 97.6
[2020-12-10] MEDS ORDERED: ATORVASTATIN 80 MG TAB PO SCH (21:00)
== END 2020-12-10 12:20 | disposition home or self-care (01) | DRG 247 ==
LOC: EC 14:51 → 3SCARD 15:17
PROVIDERS: ADMIT Family Medicine; ATTEND Family Medicine
PROC: B2111ZZ Fluoroscopy of Multiple Coronary Arteries using Low Osmolar Contrast (ICD-10-PCS; principal; 2020-12-08 11:20)
PROC: B2131ZZ Fluoroscopy of Multiple Coronary Artery Bypass Grafts using Low Osmolar Contrast (ICD-10-PCS; principal; 2020-12-08 11:20)
PROC: 027034Z Dilation of Coronary Artery, One Artery with Drug-eluting Intraluminal Device, Percutaneous Approach (ICD-10-PCS; principal; 2020-12-08 11:20)
PROC: B2181ZZ Fluoroscopy of Left Internal Mammary Bypass Graft using Low Osmolar Contrast (ICD-10-PCS; principal; 2020-12-08 11:20)
PROC: 4A023N7 Measurement of Cardiac Sampling and Pressure, Left Heart, Percutaneous Approach (ICD-10-PCS; principal; 2020-12-08 11:20)
DX: I21.3 ST elevation (STEMI) myocardial infarction of unspecified site (principal); I25.810 Atherosclerosis of coronary artery bypass graft(s) without angina pectoris; N18.32 Chronic kidney disease, stage 3b; I12.9 Hypertensive chronic kidney disease with stage 1 through stage 4 chronic kidney disease, or unspecified chronic kidney disease; I25.10 Atherosclerotic heart disease of native coronary artery without angina pectoris; E78.5 Hyperlipidemia, unspecified; I35.1 Nonrheumatic aortic (valve) insufficiency; M1A.9XX0 Chronic gout, unspecified, without tophus (tophi); K21.9 Gastro-esophageal reflux disease without esophagitis; N28.1 Cyst of kidney, acquired; F17.210 Nicotine dependence, cigarettes, uncomplicated; Z71.6 Tobacco abuse counseling; Z79.82 Long term (current) use of aspirin; Z79.02 Long term (current) use of antithrombotics/antiplatelets; Z79.899 Other long term (current) drug therapy; Z95.1 Presence of aortocoronary bypass graft; Z85.528 Personal history of other malignant neoplasm of kidney; Z90.5 Acquired absence of kidney; Z80.42 Family history of malignant neoplasm of prostate; Z80.49 Family history of malignant neoplasm of other genital organs; Z82.49 Family history of ischemic heart disease and other diseases of the circulatory system; Z83.3 Family history of diabetes mellitus
CPT/HCPCS: 36415; 71045; 76770; 80048; 80053; 80061; 83735; 84484; 85025; 85610; 85730; 93005; 93306; 93459; 96374; 99285